=== PATIENT | female | born 1955 | race Caucasian/White ===

== ENCOUNTER → 2017-04-04 | Outpatient (CLI) | payer OTHER ==
[~2017-04-04] MED LIST: AMLO10TA2 PO; LORA-392 PO; LOSA50TA2 PO
--- NOTE | 2017-04-04 11:58 | RADRPT ---
EXAM DATE/TIME: 04/04/2017 10:10 [place] COMPARISON: No previous studies available for comparison. INDICATIONS : Hypertension, abdominal bruit. MEDICAL HISTORY : Hypertension. SURGICAL HISTORY : None. ENCOUNTER: Initial ACUITY: 1 week PAIN SCORE: 0/10 LOCATION: Bilateral flank PEAK FLOW VELOCITIES (cm/sec): AORTA: PROXIMAL: 47.7 cm/s MID: 67.7 cm/s DISTAL: 88.8 cm/s RIGHT RENAL ARTERY: PROXIMAL: 103.4 MID: 146.8 DISTAL: 168.1 RENAL ARTERY RATIO: 1.89 ARCUATE ARTERY RESISTIVE INDEX: Upper: 0.75 Mid: 0.76 Lower: 0.67 LEFT RENAL ARTERY: PROXIMAL: 70.6 MID: 52.4 DISTAL: 91.8 RENAL ARTERY RATIO: 1.03 ARCUATE ARTERY RESISTIVE INDEX: Upper: 0.62 Mid: 0.79 Lower: 0.64 FINDINGS: Renal artery and vein mapping as listed above. CONCLUSION: Unremarkable ultrasound examination of the kidneys. The aorta is normal in caliber. There is no evide nce of aneurysm or dissection. Rajinder Vasquez MD on April 04, 2017 at 11:54 Board Certified Radiologist. This report was verified electronically.
== END ==
LOC: HRAD 09:53
PROVIDERS: ATTEND Internal Medicine Geriatric Medicine
DX: R09.89 Other specified symptoms and signs involving the circulatory and respiratory systems (principal); I10 Essential (primary) hypertension
CPT/HCPCS: 93975